=== PATIENT | male | born 1985 | race Caucasian/White ===

== ENCOUNTER 2017-02-21 10:27 | Observation (INO) | payer OTHER ==
[2017-02-21] MEDS ORDERED: HYDROmorphone INJ* 2 MG/ML CARPUJECT SYRINGE IV SLOW PU ONE ×2 (10:42→12:20)
[2017-02-21] MEDS ORDERED: Ondansetron INJ* 2 MG/ML VIAL IV ONE (10:42)
[2017-02-21] MEDS ORDERED: NS 0.9% 1000 ML* 1,000 ML IV ONE ×2 (10:45→14:56)
--- NOTE | 2017-02-21 11:20 | RAD ---
INDICATION: Abdominal pain. COMPARISON: Comparison is made with prior chest x-ray study from November 16, 2011. TECHNIQUE: A portable view of the chest was obtained. FINDINGS: Cardiac and mediastinal contours appear to be within normal limits. The lungs are underinflated and clear. No pleural effusion is seen. There is no evidence for free intraperitoneal air. IMPRESSION: NO EVIDENCE FOR ACUTE DISEASE.
[2017-02-21 11:51] LABS: Hematocrit 44 % (42-52); Hemoglobin 15.2 g/dl (14.0-18.0); Mean Corpuscular HGB Conc 35 g/dl (31-36); Mean Corpuscular Hemoglobin 31 pg (27-31); Mean Corpuscular Volume 89 fL (80-94); Mean Platelet Volume 8 um3 (7.4-10.4); Red Blood Count 4.93 10^6/ul (4.0-5.4); Red Cell Distribution Width 13 % (10.5-15); White Blood Count 9.2 10^3/ul (3.5-10.8)
[2017-02-21 12:07] LABS: Albumin 4.6 g/dL (3.2-5.2); C Reactive Protein 4.65 mg/L (< 5.00); Calcium 9.7 mg/dL (8.6-10.3); EGFR African American 112.1 (>60); EGFR Non-African American 87.2 (>60); Globulin 2.8 g/dL (2-4); Total Bilirubin 0.5 mg/dL (0.2-1.0); Total Protein 7.4 g/dL (6.4-8.9)
--- NOTE | 2017-02-21 13:27 | RAD ---
INDICATION: Abdominal pain COMPARISON: CT August 12, 2012 TECHNIQUE: Longitudinal and transverse scans of the right upper quadrant were obtained. Doppler interrogation of the hepatic and portal venous system was performed. FINDINGS: Liver: The liver is normal in size measuring 17 cm in cephalocaudal dimension. There is hepatic steatosis. A geographic area of decreased attenuation in the central right hepatic lobe may represent focal sparing from fatty infiltration. This is measured at approximately 2.4 x 3.0 x 2.3 cm Suggest follow-up in 3 months to reassess. Vessels: There is normal hepatic and portal venous flow. Bile ducts: There is no evidence of intrahepatic or extrahepatic ductal dilatation. The common duct measures 0.3 cm. Gallbladder: The sonographic appearance of the gallbladder is normal. There is no evidence of cholelithiasis, thickening of the gallbladder wall, or pericholecystic fluid. Pancreas: The visualized pancreas appears normal Right kidney: The right kidney is normal in size and echogenicity. There are no masses or calculi. There is no evidence of hydronephrosis. The right kidney measures 11.0 x 4.8 x 6.7 cm. IVC and aorta: The aorta and superior vena cava appear normal. Fluid: There is no ascites. Other: None. IMPRESSION: HEPATIC STEATOSIS WITH PROBABLE FOCAL FATTY INFILTRATION. SUGGEST FOLLOW-UP IN 3 MONTHS. NORMAL GALLBLADDER.
[2017-02-21 14:25] LABS: Urine Bacteria Absent (Absent); Urine Bilirubin Negative (Negative); Urine Glucose Negative (Negative); Urine Nitrite Negative (Negative)
[2017-02-21] MEDS ORDERED: NS 0.9% 1000 ML* 1,000 ML IV SCH ×2 (14:45→17:15)
--- NOTE | 2017-02-21 14:45 | RAD ---
CLINICAL HISTORY: Right upper quadrant and right flank pain. Relevant surgical history includes appendectomy. COMPARISON: CT abdomen pelvis dated August 12, 2012 TECHNIQUE: Noncontrast CT examination of the abdomen and pelvis from the lung bases through the initial tuberosities. FINDINGS: VISUALIZED LUNG BASES: The visualized lung bases are grossly clear. There is no pleural effusion. ABDOMEN AND PELVIS: Evaluation of the solid organs and vasculature is limited without intravenous contrast. The liver, spleen, pancreas and adrenal glands are grossly normal in appearance. The gallbladder is normal. There are multiple renal calculi in the bilateral kidneys the largest on the right measures 4 mm in greatest dimension. In the left kidney there are 2 renal calculi measuring 4 mm in greatest dimension apices. There are no definite renal calculi seen in either ureter or in the urinary bladder. Evaluation of the bowel is limited without oral contrast. The duodenum is largely fluid-filled and measures up to 3.4 cm in diameter (axial image 77 and coronal image 41). More distally the small bowel is not pathologically dilated. The gas and stool-filled colon is grossly normal in appearance within the limitations of a noncontrast CT examination.. The appendix is not discretely visualized consistent with the patient's medical history. There is no gross retroperitoneal or mesenteric lymphadenopathy. The pelvic viscera is normal in appearance. The abdominal aorta and iliac arteries are normal in course and diameter. There are no sinister bone lesions. IMPRESSION: 1. Right worse than left renal calculi without CT signs of obstructive uropathy. 2. Fluid-filled mildly dilated second and third portion of the duodenum of uncertain clinical significance. Please correlate to signs and symptoms of duodenitis.
[2017-02-21] MEDS ORDERED: Famotidine IV * 20 MG in NS 0.9% 100 ML* 100 ML IVPB ONE (14:49)
[2017-02-21] MEDS ORDERED: Nicotine Inhaler* 10 MG AMP INH ONE (14:57)
[2017-02-21] MEDS ORDERED: Mouth Piece, Nicotine* 1 EACH CARTRIDGE ONE (15:30)
--- NOTE | 2017-02-21 16:54 | ED ---
Teofilo Crawford Tecjoon, scribed for Beltran Yao MD on 02/21/17 at 1042 . Abdominal Pain/Male - HPI Summary HPI Summary: This patient is a 31 year old male presenting to [facility] with a chief complaint of RUQ abdominal pain since 3 days ago. The pain is described as a constant discomfort that fluctuates in intensity. The pain is rated 6/10. Symptoms aggravated by bending down and by eating. Symptoms alleviated by nothing. Patient also reports back pain, nausea, diarrhea (brown), and chills. Patient denies fevers and vomiting. Patient has a SHx of EtOH abuse, and was diagnosed with pancreatitis years ago. Patient denies drinking alcohol in the last week. - History of Current Complaint Chief Complaint: EDAbdPain Stated Complaint: ABD PAIN Time Seen by Provider: 02/21/17 10:36 Hx Obtained From: Patient Onset/Duration: Lasting Days - 3 days, Still Present Timing: Constant, Intermittent - fluctuates in intensity Severity Currently: Moderate Pain Intensity: 6 Pain Scale Used: 0-10 Numeric Location: Discrete At: RUQ Aggravating Factor(s): Food, Movement Alleviating Factor(s): Nothing Associated Signs And Symptoms: Positive: Negative - fevers and vomiting, Decreased Appetite, Other - back pain, nausea, diarrhea (brown), and chills - Allergies/Home Medications Allergies/Adverse Reactions: Allergies Allergy/AdvReac Type Severity Reaction Status Date / Time Iodine Allergy Severe Anaphylatic Verified 02/21/17 10:33 Shock Penicillins Allergy Unknown Verified 02/21/17 10:33 Reaction Details Home Medications: Home Medications NK [No Home Medications Reported] 02/21/17 [History Confirmed 02/21/17] PMH/Surg Hx/FS Hx/Imm Hx Previously Healthy: No GI History: Reports: Other GI Disorders - pancreatitis Sensory History: Denies: Hx Deafness Opthamlomology History: Denies: Hx Legally Blind - Surgical History Surgery Procedure, Year, and Place: APPY Infectious Disease History: No Infectious Disease History: Denies: Traveled Outside the [place] in Last 30 Days - Family History Known Family History: Positive: Unknown - patient was in foster care - Social History Occupation: Employed Full-time Alcohol Use: Occasionally Hx Substance Use: No Substance Use Type: Reports: None Hx Tobacco Use: Yes Type: Cigarettes, Smokeless Tobacco Do You Chew or Dip Tobacco: Yes Have You Chewed or Dipped Tobacco in the LAST YEAR: Yes Review of Systems Positive: Chills. Negative: Fever Positive: Abdominal Pain, Diarrhea, Nausea. Negative: Vomiting Positive: Other - back pain All Other Systems Reviewed And Are Negative: Yes Physical Exam Triage Information Reviewed: Yes Vital Signs On Initial Exam: Initial Vitals Temp Pulse Resp BP Pulse Ox 97.5 F 78 18 135/78 100 02/21/17 10:33 02/21/17 10:33 02/21/17 10:33 02/21/17 10:33 02/21/17 10:33 Vital Signs Reviewed: Yes Appearance: Positive: Pain Distress Skin: Positive: Warm, Skin Color Reflects Adequate Perfusion Head/Face: Positive: Normal Head/Face Inspection ENT: Positive: Pharynx normal Respiratory/Lung Sounds: Positive: Clear to Auscultation, Breath Sounds Present Cardiovascular: Positive: RRR. Negative: Murmur Abdomen Description: Positive: Other: - ruq tenderness Musculoskeletal: Positive: Strength/ROM Intact Neurological: Positive: Sensory/Motor Intact, Alert, Oriented to Person Place, Time, CN Intact II-III Psychiatric: Positive: Normal - [place] Coma Scale Best Eye Response: 4 - Spontaneous Best Motor Response: 6 - Obeys Commands Best Verbal Response: 5 - Oriented Diagnostics - Vital Signs Vital Signs Temp Pulse Resp BP Pulse Ox 02/21/17 10:33 97.5 F 78 18 135/78 100 - Laboratory Lab Results: Lab Results 02/21/17 Range/Units 11:25 WBC 9.2 (3.5-10.8) 10^3/ul RBC 4.93 (4.0-5.4) 10^6/ul Hgb 15.2 (14.0-18.0) g/dl Hct 44 (42-52) % MCV 89 (80-94) fL MCH 31 (27-31) pg MCHC 35 (31-36) g/dl RDW 13 (10.5-15) % Plt Count 295 (150-450) 10^3/ul MPV 8 (7.4-10.4) um3 Neut % (Auto) 68.8 (38-83) % Lymph % (Auto) 23.4 L (25-47) % [place] % (Auto) 5.1 (1-9) % Eos % (Auto) 2.0 (0-6) % Baso % (Auto) 0.7 (0-2) % Absolute Neuts (auto) 6.3 (1.5-7.7) 10^3/ul Absolute Lymphs (auto) 2.2 (1.0-4.8) 10^3/ul Absolute Monos (auto) 0.5 (0-0.8) 10^3/ul Absolute Eos (auto) 0.2 (0-0.6) 10^3/ul Absolute Basos (auto) 0.1 (0-0.2) 10^3/ul Absolute Nucleated RBC 0 10^3/ul Nucleated RBC % 0.1 Result Diagrams: 02/21/17 11:25 02/21/17 11:25 Lab Statement: Any lab studies that have been ordered have been reviewed, and results considered in the medical decision making process. - Radiology CXR Radiology Interpretation Completed By: Radiologist - IMPRESSION: NO EVIDENCE FOR ACUTE DISEASE. ED physician has reviewed this radiology report. - CT CT ABD/PEL CT Interpretation Completed By: Radiologist - IMPRESSION: 1. Right worse than left renal calculi without CT signs of obstructive uropathy. 2. Fluid-filled mildly dilated second and third portion of the duodenum of uncertain clinical significance. Please correlate to signs and symptoms of duodenitis. ED physician has reviewed this radiology report. - EKG 1115 Cardiac Rate: NL EKG Rhythm: Sinus Rhythm - 73 BPM EKG Interpretation: NSR. No STEMI. J-point elevation in lateral leads. - Additional Comments Diagnostic Additional Comments: Gallbladder Ultrasound reveals, per radiologist, IMPRESSION: HEPATIC STEATOSIS WITH PROBABLE FOCAL FATTY INFILTRATION. SUGGEST FOLLOW-UP IN 3 MONTHS. NORMAL GALLBLADDER. ED physician has reviewed this radiology report. Abdominal Pain Fem Course/Dx - Course Course Of Treatment: This patient is a 31 year old male presenting to [facility] with a chief complaint of RUQ abdominal pain since 3 days ago. The pain is described as a constant discomfort that fluctuates in intensity. In the ED course, the patient was given Dilaudid and Zofran. Bloodwork and Urinalysis was obtained. An EKG, taken at 1115, reveals NORMAL SINUS RHYTHM, NO STEMI J-point elevation in lateral leads. Gallbladder US reveals, per radiologist, IMPRESSION : HEPATIC STEATOSIS WITH PROBABLE FOCAL FATTY INFILTRATION. SUGGEST FOLLOW-UP IN 3 MONTHS. NORMAL GALLBLADDER. ED physician has reviewed this radiology report. CXR reveals, per radiologist, IMPRESSION: NO EVIDENCE FOR ACUTE DISEASE. ED physician has reviewed this radiology report. CT ABD/PEL reveals, per radiologist, IMPRESSION: 1. Right worse than left renal calculi without CT signs of obstructive uropathy. 2. Fluid-filled mildly dilated second and third portion of the duodenum of uncertain clinical significance. Please correlate to signs and symptoms of duodenitis. ED physician has reviewed this radiology report. We discussed patient care with Dr. Lozoya (hospitalist) and they agreed to come see the patient. - Diagnoses Provider Diagnoses: Right upper quadrant abdominal pain - Provider Notifications Discussed Care Of Patient With: Angela Lozoya - Hospitalist Time Discussed With Above Provider: 15:20 Instructed by Provider To: Other - We discussed patient care with Dr. Lozoya ( hospitalist) and they agreed to come see the patient. Discharge - Discharge Plan Condition: Fair Disposition: ADMITTED TO [facility] Referrals: No Primary Care Phys,NOPCP [Primary Care Provider] - The documentation as recorded by the Teofilo flores Tecjoon accurately reflects the service I personally performed and the decisions made by , Beltran Yao MD.
[2017-02-21] MEDS ORDERED: Acetaminophen TAB* 325 MG PO PRN (17:03)
[2017-02-21] MEDS ORDERED: Ondansetron INJ* 2 MG/ML VIAL IV PRN (17:03)
[2017-02-21] MEDS ORDERED: Morphine INJ* 2 MG/ML 1 ML SYRINGE (TWO MG - NEW SYRINGE VERSION) IV PRN (17:03)
[2017-02-21 17:36] VITALS: BP 108/64
[2017-02-21] MEDS ORDERED: Pantoprazole IV* 40 MG IV SCH (18:00)
--- NOTE | 2017-02-21 20:30 | HP ---
CC: Dr. Yao. HISTORY AND PHYSICAL: DATE OF ADMISSION: 02/21/17 PRIMARY CARE PROVIDER: None. The patient recently relocated from [place] this year. CHIEF COMPLAINT: Abdominal pain. HISTORY OF PRESENT ILLNESS: Elia Suarez is a 31-year-old male with history of alcoholic pancrea titis approximately 3 years ago. The patient stated ever since then he had been having intermittent right upper quadrant abdominal pain that resolves spontaneously. The patient also has history of 2 t o 3 loose stools a day, which is his norm. The patient stated for the past couple of days, he had be en having 4 to 5 loose stools a day and his right upper quadrant abdominal pain was severe. Currentl y, his abdominal pain is at 4/10. He stated that he was slightly nauseated yesterday but that resolv ed and he had no vomiting. He denies any fevers. Dr. Yao evaluated the patient in the emergency room and recommended admission. PAST MEDICAL HISTORY: History of alcoholic pancreatitis 3 years ago. MEDICATIONS: None. The patient occasionally take [id number] "medication for reflux." ALLERGIES: Include IODINE, anaphylactic shock; PENICILLIN has caused unknown reaction. FAMILY HISTORY: Unknown. The patient is a child from foster care. SOCIAL HISTORY: The patient smokes 1 pack per day and has been doing so ever since he was a teenager . He denies any drug use. He drinks alcohol rarely, but he used to drink extensively prior to his d iagnosis of pancreatitis 3 years ago. The patient lives with his children and his friend. He is . REVIEW OF SYSTEMS: Please see history of present illness. All the remaining 14 systems reviewed wit h the patient and they were otherwise negative. PHYSICAL EXAMINATION GENERAL: The patient is a very pleasant 31-year-old male who is in no acute distress. Alert, awake, and oriented x3. VITAL SIGNS: Blood pressure of 91/65, heart rate of 62 and regular, respiratory rate 14, oxygen satu ration 96% on room air, temperature 97.5. HEENT: Head: Atraumatic, normocephalic. Eyes: Pupils are equal, reactive to light and accommodati on. Oropharynx clear. Mucosa moist. NECK: Supple. No JVD. No bruits bilaterally. RESPIRATORY: Clear to auscultation bilaterally. CARDIOVASCULAR: Regular rate and rhythm, no murmur. ABDOMEN: Soft, tender in the right upper and right lower quadrant with no rebound and voluntary guar ding. Bowel sounds are present in all 4 quadrants. EXTREMITIES: There is no edema. Pulses are +2 bilaterally. No clubbing or cyanosis. NEUROLOGIC: On neuro evaluation, speech is clear. Cranial nerves II through XII grossly intact. Mo tor strength is 5/5 bilaterally. SKIN: On evaluation of the skin, the patient has multiple tattoos but no evidence of rashes or infec tions noted. LABORATORY DATA/DIAGNOSTIC STUDIES: Laboratory workup completed in the emergency department was unr emarkable. White blood cell count of 9.2, hemoglobin 15.2, hematocrit 44, and platelets of 195. Sodium was 136, potassium 4.0, chloride 105, carbon dioxide 24, BUN 13, creatinine 1.0. Liver functi on tests were unremarkable. ALT of 59, AST 31 and bilirubin of 0.5. Lactic acid was 1.2. Urinalysis was unremarkable. CT of abdomen and pelvis, Impression: "Right worse than left renal calculi without CT signs of obstr uctive uropathy. Fluid-filled mildly dilated second and third portion of the duodenum of uncertain c linical significance. Please correlate the signs and symptoms of duodenitis." Gallbladder ultrasound, Impression: "Hepatic steatosis with probable focal fatty infiltration. Sugg est followup in 3 months. Normal gallbladder." ASSESSMENT AND PLAN: Intractable abdominal pain. The patient has had history of loose bowels and in termittent abdominal pain ever since his diagnosis of pancreatitis 3 years ago. At this point, the [facility] was recommended for admission by the ED physicians. The patient was placed for observation fo r intravenous hydration and management of pain with IV morphine. So far, there is no workup suggesti ve of any major pathology. I did discuss with the patient that due to his history of intermittent ab dominal pain and loose bowel movements for a few years, the patient would benefit [facility] for possibility of colonoscopy. At the end of the patient's visit, the patient requested to go home and agreed with signing against m edical advice. He stated that he wants to be home with his children. He stated that his pain is now resolving and he is probably able to take p.o. diet. The patient likely will sign against medical advice from the hospital. TIME SPENT: Approximately 55 minutes was spent on admission of this patient. [id number]/[facility] #: [id number]
== END 2017-02-21 17:36 | disposition left against medical advice (07) ==
LOC: ED 10:27 → MED 16:58
PROVIDERS: ADMIT Internal Medicine; ATTEND Emergency Medicine
DX: R10.11 Right upper quadrant pain (principal); Z53.21 Procedure and treatment not carried out due to patient leaving prior to being seen by health care provider; Z88.0 Allergy status to penicillin; Z91.09 Other allergy status, other than to drugs and biological substances; F17.200 Nicotine dependence, unspecified, uncomplicated
CPT/HCPCS: 36415; 71010; 74176; 76705; 80053; 81003; 83605; 83690; 84484; 85025; 86140; 93005; 96361; 96374; 96375; 99284; A9270-GY; G0378; J1170; J2405

== ENCOUNTER 2019-03-12 13:39 | Emergency (ER) | payer OTHER ==
[2019-03-12 14:40] LABS: ABS Eosinophils 0.2 10^3/ul (0-0.6); ABS Lymphocytes 2.1 10^3/ul (1.0-4.8); ABS Monocytes 0.7 10^3/ul (0-0.8); ABS Neutrophils 6.9 10^3/ul (1.5-7.7); Eosinophil % 1.6 %; Hematocrit 45 % (42-52); Hemoglobin 15.6 g/dL (14.0-18.0); Lymphocyte % 21.2 %; Mean Corpuscular HGB Conc 35 g/dL (31-36); Mean Corpuscular Hemoglobin 31 pg (27-31); Mean Corpuscular Volume 91 fL (80-94); Nucleated Red Blood Cells % 0.1; Platelet Count 291 10^3/uL (150-450); Red Cell Distribution Width 14 % (10-15); White Blood Count 9.9 10^3/uL (3.5-10.8)
[2019-03-12] MEDS ORDERED: Morphine 4 MG/ML VIAL (1 ml) 4 MG/ML VIAL IV ONE ×2 (15:05→16:15)
[2019-03-12] MEDS ORDERED: Ondansetron INJ* 2 MG/ML VIAL IV ONE (15:06)
[2019-03-12 15:08] LABS: BUN/Creatinine Ratio 11.9 (8-20); C Reactive Protein 4.49 mg/L (<8.01); Calcium 9.8 mg/dL (8.6-10.3); EGFR African American 102.9 (>60); EGFR Non-African American 85.1 (>60); Globulin 2.5 g/dL (2-4); Potassium 4.1 mmol/L (3.5-5.0); Total Bilirubin 0.4 mg/dL (0.2-1.0); Total Protein 7.5 g/dL (6.4-8.9)
--- NOTE | 2019-03-12 15:12 | ED ---
Abdominal Pain/Male - HPI Summary HPI Summary: 33-year-old male with significant past medical history of alcoholic pancreatitis and kidney stones presents to emergency department today complaining of 10 out of 10 right flank pain which radiates to the groin made worse with movement which began approximately 3 days ago. Patient states he has known kidney stones and currently has a right ureteral stent after having a 6 mm obstructing stone February 03. Patient states when they laid ureteral stent but did not remove the 6 mm stone and he believes this stone is causing his pain today. Patient states yesterday when he was skiing it was "straight blood". Patient is endorsing associated nausea and vomiting but denies fever. Patient 5-325 hydrocodone-acetaminophen prior to arrival with no relief of pain. Family history is noncontributory. Patient denies chest pain, shortness of breath, abdominal pain, rash. - History of Current Complaint Chief Complaint: EDFlankPain Stated Complaint: SEVERE BACK PAIN/KIDNEY STONES PER PT Time Seen by Provider: 03/12/19 15:02 Hx Obtained From: Patient Onset/Duration: Sudden Onset Timing: Lasting Hours Severity Initially: Moderate Severity Currently: Severe Pain Intensity: 7 Pain Scale Used: 0-10 Numeric Location: Flank Radiates: Yes Radiates to: Inguinal Character: Sharp, Colicy Aggravating Factor(s): Movement Alleviating Factor(s): Nothing Associated Signs And Symptoms: Positive: Negative, Nausea - Allergies/Home Medications Allergies/Adverse Reactions: Allergies Allergy/AdvReac Type Severity Reaction Status Date / Time MS Iodine [Iodine] Allergy Severe Anaphylatic Verified 02/21/17 10:33 Shock MS Penicillins [Penicillins] Allergy Unknown Verified 02/21/17 10:33 Reaction Details Home Medications: Home Medications Acetaminophen TAB* [Tylenol TAB*] 650 mg PO Q4H PRN 03/12/19 [History Confirmed 03/12/19] Ibuprofen TAB* [Advil TAB*] 600 mg PO TID PRN 03/12/19 [History Confirmed ] Oxybutynin TAB* [Ditropan TAB*] 5 mg PO TID PRN 03/12/19 [History Confirmed 11/21] Phenazopyridine TAB* [Pyridium 100 mg TAB*] 100 mg PO TID PRN 03/12/19 [History Confirmed 03/12/19] Tamsulosin CAP* [Flomax CAP*] 0.4 mg PO DAILY 03/12/19 [History Confirmed ] PMH/Surg Hx/FS Hx/Imm Hx GI History: Reports: Other GI Disorders - pancreatitis History: Reports: Hx Kidney Stones Denies: Hx Chronic Renal Failure, Hx Dialysis Sensory History: Denies: Hx Legally Blind, Hx Deafness Opthamlomology History: Denies: Hx Legally Blind - Surgical History Surgery Procedure, Year, and Place: APPY Infectious Disease History: No Infectious Disease History: Denies: Traveled Outside the [place] in Last 30 Days - Family History Known Family History: Positive: Unknown - patient was in foster care - Social History Alcohol Use: Occasionally Hx Substance Use: No Substance Use Type: Reports: None Substance Use Comment - Amount & Last Used: daily before bed Hx Tobacco Use: Yes Smoking Status (MU): Heavy Every Day Tobacco Smoker Type: Cigarettes, Smokeless Tobacco Review of Systems Constitutional: Negative Eyes: Negative ENT: Negative Cardiovascular: Negative Respiratory: Negative Positive: Abdominal Pain, Nausea Genitourinary: Negative Musculoskeletal: Negative Skin: Negative Neurological: Negative Positive: Anxious All Other Systems Reviewed And Are Negative: Yes Physical Exam Triage Information Reviewed: Yes Vital Signs On Initial Exam: Initial Vitals Temp Pulse Resp BP Pulse Ox 97.8 F 89 18 153/98 99 03/12/19 13:47 03/12/19 13:47 03/12/19 13:47 03/12/19 13:47 03/12/19 13:47 Vital Signs Reviewed: Yes Appearance: Positive: Well-Appearing, Well-Nourished, Pain Distress Skin: Positive: Warm, Skin Color Reflects Adequate Perfusion Eyes: Positive: EOMI, ZORAIDA Respiratory/Lung Sounds: Positive: Clear to Auscultation, Breath Sounds Present Cardiovascular: Positive: RRR, S1, S2 Abdomen Description: Positive: Soft, CVA Tenderness (R), Guarding. Negative: CVA Tenderness (L), Distended Bowel Sounds: Positive: Present Musculoskeletal: Positive: Strength/ROM Intact Neurological: Positive: Sensory/Motor Intact, Alert, Oriented to Person Place, Time, Normal Gait, Facial Symmetry, Speech Normal Psychiatric: Positive: Normal, Affect/Mood Appropriate AVPU Assessment: Alert Procedures - Sedation Patient Received Moderate/Deep Sedation with Procedure: No Diagnostics - Vital Signs Vital Signs Temp Pulse Resp BP Pulse Ox 03/12/19 13:47 97.8 F 89 18 153/98 99 - Laboratory Lab Results: Lab Results 03/12/19 03/12/19 Range/Units 14:28 14:28 WBC 9.9 (3.5-10.8) 10^3/uL RBC 5.00 (4.18-5.48) 10^6 /uL Hgb 15.6 (14.0-18.0) g/dL Hct 45 (42-52) % MCV 91 (80-94) fL MCH 31 (27-31) pg MCHC 35 (31-36) g/dL RDW 14 (10-15) % Plt Count 291 (150-450) 10^3/uL MPV 8.0 (7.4-10.4) fL Neut % (Auto) 69.9 % Lymph % (Auto) 21.2 % [place] % (Auto) 6.9 % Eos % (Auto) 1.6 % Baso % (Auto) 0.4 % Absolute Neuts (auto) 6.9 (1.5-7.7) 10^3/ul Absolute Lymphs (auto) 2.1 (1.0-4.8) 10^3/ul Absolute Monos (auto) 0.7 (0-0.8) 10^3/ul Absolute Eos (auto) 0.2 (0-0.6) 10^3/ul Absolute Basos (auto) 0.0 (0-0.2) 10^3/ul Absolute Nucleated RBC 0.0 10^3/ul Nucleated RBC % 0.1 Sodium 139 (135-145) mmol/L Potassium 4.1 (3.5-5.0) mmol/L Chloride 104 (101-111) mmol/L Carbon Dioxide 31 (22-32) mmol/L Anion Gap 4 (2-11) mmol/L BUN 12 (6-24) mg/dL Creatinine 1.01 (0.67-1.17) mg/dL Est GFR ( Amer) 102.9 (>60) Est GFR (Non-Af Amer) 85.1 (>60) BUN/Creatinine Ratio 11.9 (8-20) Glucose 69 L (70-100) mg/dL Calcium 9.8 (8.6-10.3) mg/dL Total Bilirubin 0.40 (0.2-1.0) mg/dL AST 46 H (13-39) U/L ALT 106 H (7-52) U/L Alkaline Phosphatase 72 (34-104) U/L C-Reactive Protein 4.49 (<8.01) mg/L Total Protein 7.5 (6.4-8.9) g/dL Albumin 5.0 (3.2-5.2) g/dL Globulin 2.5 (2-4) g/dL Albumin/Globulin Ratio 2.0 (1-3) Result Diagrams: 03/12/19 14:28 03/12/19 14:28 Lab Statement: Any lab studies that have been ordered have been reviewed, and results considered in the medical decision making process. Abdominal Pain Male Course/Dx - Course Course Of Treatment: Patient was evaluated in the emergency department today for abdominal pain. Patient was seen and examined his vitals were stable and he is afebrile. Patient was then exquisite pain so an IV was established and 8 mg of morphine 4 mg of Zofran IV. Labs were ordered and showed no significant abnormalities. PT began having more pain and was given 4mg morphine and 30mg toradol IV. CT scan of the abdoment and pelvis wo shows bilateral renal calculi , and placment of a right nephrostomy tube. renal and bladder US shows BL jets, showing no obstruction. Dr. Cabrera, urology, was consulted and instructed to place the patient on bactrim and to follow up with his urologist in [place] or with himself at his clinic as an outpatient. PT instructed to take bactrim, ibuprofen, percocet for pain and follow up with urology. Pt agrees. - Diagnoses Differential Diagnosis/HQI/PQRI: Constipation, Gall Bladder Disease, Renal Colic , Ureteral Stone, Urinary Tract Infection Provider Diagnoses: Kidney stones - Provider Notifications Discussed Care Of Patient With: Graham Carbera - Place pt on bactrim and follow up as outpatient Discharge ED - Sign-Out/Discharge Documenting (check all that apply): Patient Departure - Discharge Plan Condition: Stable Disposition: HOME Prescriptions: oxyCODONE/Acetamin 5/325 MG* [Percocet 5/325 TAB*] 1 tab PO Q6H PRN #12 tab MDD 4 PRN Reason: Pain - Severe Sulfamethox/Trimethoprim DS* [Bactrim DS 800/160 TAB*] 1 tab PO BID #14 tab Patient Education Materials: Kidney Stones (ED) Referrals: Charlie MARINO,Miguel Rinaldi [Primary Care Provider] - Graham Cabrera MD [Medical Doctor] - 3 Days Additional Instructions: He was seen in the emergency department today for abdominal pain. A CT images done which showed: TECHNIQUE: Multiple contiguous axial CT scans were obtained of the abdomen and pelvis, without intravenous contrast enhancement. Coronal and sagittal multiplanar reformations are submitted for review. Oral contrast was not administered. FINDINGS: Evaluation is limited due to the lack of intravenous contrast. This limits evaluation of the solid organs and vasculature. LUNG BASES : The lung bases are clear. LIVER: The liver is diffusely low in attenuation compared to the spleen. There is focal increased echogenicity of the right lobe on axial image 20 measuring 3.6 cm. The liver measures 19 cm in long axis.. BILE DUCTS: There is no intrahepatic or extrahepatic biliary dilatation. GALLBLADDER: The gallbladder is incompletely distended, but is grossly normal. PANCREAS: The pancreas is normal, without mass or ductal dilatation. SPLEEN: Normal in size and appearance. UPPER GI TRACT: Evaluation of the gastrointestinal tract is limited by incomplete gastric distention. The upper GI tract is unremarkable. SMALL BOWEL AND MESENTERY: The small bowel is normal in contour, course, and caliber. There is no obstruction or dilatation. COLON: The colon is normal in contour, course, caliber. There is no pericolonic inflammatory change. ADRENALS: Normal bilaterally. KIDNEYS: A right ureteral stent is noted. There are bilateral renal calyceal stones measuring up to 0.2 cm. There is no appreciable hydronephrosis. BLADDER: The bladder is smooth in contour. PELVIC ORGANS: The prostate gland is normal. The seminal vesicles are symmetric. AORTA: The aorta is normal. IVC: Unremarkable LYMPH NODES: There is no lymphadenopathy by size criteria. ABDOMINAL WALL: There is no evidence for abdominal wall hernia. BONES AND SOFT TISSUES: There are mild diffuse degenerative changes. OTHER: None IMPRESSION: 1. BILATERAL NEPHROLITHIASIS WITH A RIGHT URETERAL STENT. 2. HEPATOMEGALY WITH FATTY INFILTRATION OF THE LIVER. 3. THERE IS FOCAL INCREASED ECHOGENICITY OF THE RIGHT LOBE OF LIVER. WHILE THIS MAY REPRESENT FOCAL FATTY SPARING VERSUS A HEPATIC HEMANGIOMA, THIS IS INCOMPLETELY CHARACTERIZED ON THE CURRENT NONCONTRAST EXAMINATION. RECOMMEND CONSIDERATION OF FURTHER EVALUATION WITH ULTRASOUND OF THE ABDOMEN ARE MULTIPLE SCREWS CONTRAST-ENHANCED LIVER PROTOCOL CT OF THE ABDOMEN, CONTRAST-ENHANCED MRI OF THE ABDOMEN IN THE NONACUTE SETTING. Please take ibuprofen 600 mg every 6 hours for pain Please alternate this with Percocet every 6 hours for pain and follow-up with your urology appointment tomorrow for further evaluation and management. Please return to the emergency department immediately if you develop any new or worsening symptoms. - Billing Disposition and Condition Condition: STABLE Disposition: Home
[2019-03-12] MEDS: NS 0.9% 1000 ML** 2,000 ML IV ONE ×2 (15:43→18:24)
[2019-03-12] MEDS ORDERED: Lactated Ringers 1000 ML Bag* 1,000 ML IV SCH (16:00)
[2019-03-12] MEDS ORDERED: Ketorolac INJ* 30 MG/ML 1 ML VIAL IV PUSH ONE (16:26)
[2019-03-12 18:48] LABS: Urine Appearance Clear; Urine Bilirubin Negative (Negative); Urine Blood Negative (Negative); Urine Color Amber; Urine Glucose Negative (Negative); Urine Ketones Negative (Negative); Urine Nitrite Positive (Negative); Urine Protein Negative (Negative); Urine Specific Gravity 1.008 (1.010-1.030); Urine Urobilinogen Negative (Negative)
[2019-03-12 18:55] LABS: Urine Bacteria 1+ (Absent); Urine Red Blood Cell Absent (Absent); Urine White Blood Cell Trace(0-5/hpf) (Absent)
[2019-03-12] MEDS ORDERED: Sulfamethox/Trimethoprim DS 800/160* TAB PO ONE (18:55)
[2019-03-12 19:20] VITALS: BP 126/82
== END 2019-03-12 19:19 | disposition home or self-care (01) ==
LOC: ED 13:39
DX: N20.0 Calculus of kidney (principal); Z87.442 Personal history of urinary calculi; R11.2 Nausea with vomiting, unspecified; K76.0 Fatty (change of) liver, not elsewhere classified; K86.0 Alcohol-induced chronic pancreatitis; Z88.0 Allergy status to penicillin; F17.210 Nicotine dependence, cigarettes, uncomplicated
CPT/HCPCS: 36415; 74176; 76770; 80053; 81003; 81015; 83605; 85025; 86140; 87086; 96361; 96374; 96375; 96376; 99282; A9270-GY; J1885; J2270; J2405